=== PATIENT | male | born 1995 | race Two or more races ===

== ENCOUNTER 2023-01-12 23:44 | Emergency (ER) | payer BC, SELFPAY ==
--- NOTE | ~2023-01-12 | XR_ITS ---
EXAMINATION: XR HAND, RIGHT CLINICAL INFORMATION: Pain status post trauma COMPARISON: None available. TECHNIQUE: PA, lateral, and oblique views of the right hand. FINDINGS: No acute fracture or dislocation. Questionable chronic fracture deformity of the fifth metacarpal base. Alignment is anatomic. Joint spaces are maintained. No erosions or soft tissue calcifications. Soft tissue swelling dorsal to the metacarpals. XR/XR hand RT 2V IMPRESSION: No acute fracture or dislocation
[2023-01-13 00:18] VITALS: BP 103/66; PULSE 82; RESP 16; TEMP 36.6; O2SAT 97; BMI 26.5
--- NOTE | 2023-01-13 02:52 | ED_ITS ---
HPI - Extremity Problem General Chief complaint: Extremity Injury, Upper Stated complaint: right hand pain,anxiety Time Seen by Provider: 01/13/23 01:45 Source: patient Mode of arrival: ambulatory Limitations: no limitations History of Present Illness HPI Narrative: 27-year-old male who presents emergency department for evaluation of right hand injury that occurred after he punched a wall yesterday and anxiety. Patient states he was upset and he punched a wall. After this event he has been having pain in his right hand, he points to his 4th and 5th metacarpal areas. The patient states he is having trouble making a fist secondary to the pain. Patient also states he has a history of depression anxiety this currently not receiving treatment. He states he has had a lot of stress in life but does not want to go into detail. He is requesting to talk to 1 of our counselors in regards to treatment of his anxiety and depression. He denies being suicidal or homicidal. Related Data Allergies Allergy/AdvReac Type Severity Reaction Status Date / Time No Known Allergies Allergy Verified 01/13/23 00:17 Review of Systems Review of Systems: Yes all other systems are reviewed and are negative [facility] Past Medical History [facility] Narrative: Past medical history: Depression, anxiety. Social history: He does smoke cigarettes. He drinks alcohol 5 times a week any drinks 1-2 nips when he drinks. He denies drug use. Social History Social History Advance Directives: No Advance Directives Information Provided: No Physical Exam Vital Signs: Vital Signs: Last Vital Signs Temp 98.1 F 01/13/23 05:11 Pulse 72 01/13/23 05:11 Resp 16 01/13/23 05:11 BP 116/62 01/13/23 05:11 Pulse Ox 97 01/13/23 05:11 O2 Del Method Room Air 01/13/23 05:11 BMI result Body Mass Index 26.5 General: Awake, alert, male patient, no distress, answers all questions appropriately Right hand exam: Patient does have tenderness palpation over the 4th and 5th metacarpal areas, there is no ecchymosis, there is no significant soft tissue swelling, his hand is neurovascular intact Neurologic exam: Patient is oriented to person place, cranial nerves are intact, strength symmetric, gait normal Psychiatric exam: Patient is oriented to person and place, he denies suicidal or homicidal ideation. Medications Administered Discontinued Medications Generic Name Dose Route Start Last Admin Trade Name Jessica PRN Reason Stop Dose Admin Ibuprofen 400 mg 01/13/23 03:06 01/13/23 03:53 Ibuprofen 400 Mg Tablet PO 01/13/23 03:07 400 mg ONCE ONE Administration Medical Decision Making Medical Decision Making MDM Narrative: 27-year-old male who punched a wall yesterday now presents emergency department for evaluation of pain in his right hand. Patient did have tenderness with palpation over the 4th and 5th metacarpal areas of his right hand x-rays were obtained and on my interpretation I do not see any acute fractures. Radiology interpretation is same. Patient was given ibuprofen 400 mg orally for his pain. He was also given an ice pack. The patient is requesting counseling for his depression anxiety. He denied being suicidal homicidal. I did offer outpatient counseling through [facility] but he wants to stay in the emergency department until he can talk to a care team counselor. Therefore the patient will be kept in the emergency department until the care team can evaluate him. 0730: At the end of my shift, the patient is still waiting to be seen by the care team. Therefore the patient's care was turned over to my colleague, Dr. Mikayla Lawton. Differential Diagnosis Differential Diagnoses: The differential diagnosis associated with the presentation includes Differential diagnosis for right hand injury includes but is not limited to contusion, fracture. Differential diagnosis for anxiety includes but is not limited to depression, anxiety, suicidal ideation, homicidal ideation, alcohol use disorder Discharge Plan Discharge Clinical Impression: Depression, Anxiety, Right hand pain Patient Disposition: Still a Patient
[2023-01-13] MEDS: Ibuprofen 400 MG TABLET PO (03:53)
[2023-01-13 05:11] VITALS: BP 116/62; PULSE 72; RESP 16; TEMP 36.7; O2SAT 97
[2023-01-13 09:28] VITALS: BP 130/65; PULSE 67; RESP 14; TEMP 36.4; O2SAT 100
--- NOTE | 2023-01-13 11:14 | PC.NURSE ---
CARE TEAM AT BEDSIDE
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
== END 2023-01-14 07:20 | disposition home or self-care (01) ==
PROVIDERS: Emergency Provider Student in an Organized Health Care Education/Training Program
DX: F32.A Depression, unspecified (principal); F41.9 Anxiety disorder, unspecified; M79.641 Pain in right hand
CPT/HCPCS: 73120; 99283

== ENCOUNTER 2023-01-23 21:57 | Emergency (ER) | payer BC, SELFPAY ==
--- NOTE | ~2023-01-23 | XR_ITS ---
EXAMINATION: XR KNEE, RIGHT CLINICAL INFORMATION: Fall, pain. COMPARISON: None available. TECHNIQUE: Four views of the right knee. FINDINGS: No acute fractures or malalignment. No significant degenerative changes. Small joint effusion. XR/XR knee RT 4V IMPRESSION: No acute fractures or malalignment. Small joint effusion.
[2023-01-23 22:05] VITALS: BP 120/70; PULSE 82; RESP 18; TEMP 36.8; O2SAT 98; BMI 25.7
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
== END 2023-01-23 23:55 | disposition home or self-care (01) ==
PROVIDERS: Emergency Provider Emergency Medicine
DX: S83.91XA Sprain of unspecified site of right knee, initial encounter (principal); F41.1 Generalized anxiety disorder; F43.0 Acute stress reaction; M25.561 Pain in right knee; X58.XXXA Exposure to other specified factors, initial encounter; Y93.9 Activity, unspecified; Y92.9 Unspecified place or not applicable; Y99.9 Unspecified external cause status
CPT/HCPCS: 73564; 99282; 99283